=== PATIENT | male | born 1950 | race Caucasian/White ===

== ENCOUNTER 2024-05-28 12:04 | Emergency (ER) | payer MEDICARE ==
--- NOTE | 2024-05-28 12:11 | ERPHSYRPT ---
- History of Present Illness Time Seen by Provider: 05/28/24 12:10 Source: patient, family Exam Limitations: no limitations Physician History: This is an obese 74-year-old white male patient who was brought into the emergency department by a friend because of dizziness episodes. Patient's primary care provider is nurse meagan Keith. Patient states over the last several months she has had episodes of dizziness where he stands up in the room is spinning. Symptoms resolved relatively quickly. 2 days ago he had similar episode which resolved but took a little longer. Today he had another episode which took longer to resolve and he became concerned. By the time he arrived to emergency room, he has no more dizziness. The room is not spinning. Patient de nies chest pain. Patient denies shortness of breath. Patient has no diagnosed history of coronary artery disease or heart problems. Patient is not on any new medications. Within the last 10 days he completed antibiotics to treat diverticulitis. Patient does not see a hand woodworking sander. Timing/Duration: other (Multiple episodes. The most recent was approximately 1 hour prior to arrival) Severity: mild Character of Deficits: none Deficits: no difficulties Baseline/Normal Cognition: alert oriented x 3 Current Cognition: alert oriented x 3 Baseline Gait: walks w/o assistance Associated Symptoms: denies symptoms Allergies/Adverse Reactions: No Known Drug Allergies Allergy (Verified 05/28/24 12:15) Home Medications: Atorvastatin Calcium 80 mg PO DAILY 05/28/24 [History] Travel Risk - International Travel Have you traveled outside of the country in past 3 weeks: No - Emerging Infectious Disease Are you exhibiting symptoms associated with any current EIDs: No - Review of Systems Constitutional: No Symptoms Eyes: No Symptoms Ears, Nose, & Throat: No Symptoms Respiratory: No Symptoms Cardiac: No Symptoms Abdominal/Gastrointestinal: No Symptoms Genitourinary Symptoms: No Symptoms Musculoskeletal: No Symptoms Skin: No Symptoms Neurological: Dizziness Psychological: No Symptoms Endocrine: No Symptoms Hematologic/Lymphatic: No Symptoms Immunological/Allergic: No Symptoms All Other Systems: Reviewed and Negative - Past Medical History Neurological History: No Pertinent History Cardiac History: High Cholesterol Respiratory History: No Pertinent History Endocrine Medical History: No Pertinent History Musculoskeletal History: Arthritis Other Medical History: NONE NOTED - Nursing Vital Signs Nursing Vital Signs: Initial Vital Signs Temperature 97.0 F 05/28/24 12:11 Pulse Rate 85 05/28/24 12:11 Respiratory Rate 18 05/28/24 12:11 Blood Pressure 166/90 05/28/24 12:11 O2 Sat by Pulse Oximetry 99 05/28/24 12:11 Pain Scale Pain Intensity 0 - Cornelia Coma Scale Best Eye Response ([employer]): (4) open spontaneously Best Verbal Response ([employer]): (5) oriented Best Motor Response ([place]): (6) obeys commands Cornelia Total: 15 - Physical Exam General Appearance: no apparent distress, alert, anxiety, obese Eye Exam: bilateral eye: normal inspection, PERRL, EOMI Ears, Nose, Throat Exam: normal ENT inspection, TMs normal, pharynx normal, moist mucous membranes Neck Exam: normal inspection, non-tender, supple, full range of motion Respiratory: normal breath sounds, lungs clear, airway intact, No chest tenderness, No respiratory distress Cardiovascular: regular rate/rhythm, normal heart sounds, normal peripheral pulses Gastrointestinal: soft, normal bowel sounds, No tenderness Rectal Exam: not done Back Exam: normal inspection, normal range of motion, No CVA tenderness, No v ertebral tenderness Extremity Exam: normal inspection, normal range of motion, pelvis stable Mental Status: alert, oriented x 3, 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 QTc is 425) Ordered Tests: Active Orders 24 hr Category Date Time Status Manager Target STAT Care 05/28/24 12:21 Active EKG-ER Only STAT Care 05/28/24 12:20 Active IV Insertion STAT Care 05/28/24 12:20 Active HEAD WITHOUT CONTRAST [CT] Stat Exams 05/28/24 12:39 Completed CBC W DIFF Stat Lab 05/28/24 12:30 Completed CMP Stat Lab 05/28/24 12:30 Completed ETHYL ALCOHOL Stat Lab 05/28/24 12:30 Completed Lactic Acid Stat Lab 05/28/24 12:20 Completed MAGNESIUM Stat Lab 05/28/24 12:30 Completed MONO SCREEN Stat Lab 05/28/24 12:30 Completed TROPONIN Q4H Lab 05/28/24 12:30 Completed TROPONIN Q4H Lab 05/28/24 16:30 Ordered TROPONIN Q4H Lab 05/28/24 20:30 Ordered UA W/RFX UR CULTURE Stat Lab 05/28/24 12:34 Completed Urine Triage Profile Stat Lab 05/28/24 12:34 Results Holter Monitor ONCE RT 05/28/24 14:35 Ordered Medication Summary Discontinued Medications Generic Name Dose Route Start Last Admin Trade Name Marcos PRN Reason Stop Dose Admin Sodium Chloride 1,000 mls @ 999 mls/hr 05/28/24 12:20 05/28/24 13:40 Sodium Chloride 0.9% 1000 Ml IV 05/28/24 13:20 Infused .Q1H1M STA Infusion Sodium Chloride Confirm 05/28/24 12:33 Sodium Chloride 0.9% 1000 Ml Administered 05/28/24 12:34 Dose 1,000 mls @ ud .ROUTE .STK-MED ONE Lab/Rad Data: Laboratory Result Diagrams 05/28/24 12:30 05/28/24 12:30 Laboratory Results 05/28/24 05/28/24 05/28/24 Range/Units 12:34 12:34 12:30 WBC (4.23-9.07) x10^3/uL RBC (4.63-6.08) x10^6/uL Hgb (13.7-17.5) g/dL Hct (40.1-51.0) % MCV (79.0-92.2) fL MCH (25.7-32.2) pg MCHC (32.3-36.5) g/dL RDW (11.6-14.4) % Plt Count (163-337) x10^3/uL MPV (9.4-12.4) fL Gran % (34.0-67.9) % Immature Gran % (Auto) (0.001-0.429) % Nucleat RBC Rel Count (0.00-0.2) % Eos # (Auto) (0.04-0.54) x10^3/uL Immature Gran # (Auto) (0.001-0.031) x10^3u/L Absolute Lymphs (auto) (1.32-3.57) x10^3/uL Absolute Monos (auto) (0.30-0.82) x10^3/uL Absolute Nucleated RBC (0.00-0.012) x10^3u/L Lymphocytes % (21.8-53.1) % Monocytes % (5.3-12.2) % Eosinophils % (0.8-7.0) % Basophils % (0.2-1.2) % Absolute Granulocytes (1.78-5.38) x10^3/uL Basophils # (0.01-0.08) x10^3/uL Sodium (135-145) mmol/L Potassium (3.5-5.1) mmol/L Chloride (98-107) mmol/L Carbon Dioxide (22-30) mmol/L Anion Gap (5-15) MEQ/L BUN (9-20) mg/dL Creatinine (0.66-1.25) mg/dL Estimated GFR ML/MIN Glucose (74-106) mg/dL Lactic Acid (0.4-2.0) Calcium (8.4-10.2) mg/dL Magnesium (1.6-2.3) mg/dL Total Bilirubin (0.2-1.3) mg/dL AST (17-59) U/L ALT (0-50) U/L Alkaline Phosphatase (38-126) U/L Troponin I (0.000-0.033) ng/mL Serum Total Protein (6.3-8.2) g/dL Albumin (3.5-5.0) g/dL Urine Color Yellow (Yellow) Urine Appearance Clear (Clear) Urine pH 5.5 (4.6-8.0) Ur Specific Loving 1.015 (1.005-1.030) Urine Protein Trace A (Negative) Urine Glucose (UA) Negative (Negative) mg/dL Urine Ketones Trace A (Negative) Urine Blood Negative (Negative) Urine Nitrite Negative (Negative) Urine Bilirubin Negative (Negative) Urine Urobilinogen 0.2 (0.2) mg/dL Ur Leukocyte Esterase Negative (Negative) U Hyaline Cast (Auto) NONE SEEN (0-2) /LPF Urine Microscopic RBC 0-2 (0-5) /HPF Urine Microscopic WBC 0-2 (0-5) /HPF Ur Epithelial Cells None Seen (None Seen) /HPF Urine Bacteria None Seen (None Seen) /HPF Urine Culture Reflexed NO (NO) Urine Opiates Level NEGATIVE (NEGATIVE) Ur Methadone NEGATIVE (NEGATIVE) Urine Barbiturates NEGATIVE (NEGATIVE) Ur Phencyclidine (PCP) NEGATIVE (NEGATIVE) Urine Amphetamine NEGATIVE (NEGATIVE) U Benzodiazepine Level Pending Urine Cocaine NEGATIVE (NEGATIVE) Urine Marijuana (THC) NEGATIVE (NEGATIVE) Ethyl Alcohol (0-10) mg/dL Monoscreen (NEGATIVE) Influenza Type A Ag NEGATIVE (NEGATIVE) Influenza Type B Ag NEGATIVE (NEGATIVE) RSV (PCR) NEGATIVE (NEGATIVE) SARS-CoV-2 (PCR) NEGATIVE (NEGATIVE) 05/28/24 05/28/24 05/28/24 Range/Units 12:30 12:30 12:30 WBC (4.23-9.07) x10^3/uL RBC (4.63-6.08) x10^6/uL Hgb (13.7-17.5) g/dL Hct (40.1-51.0) % MCV (79.0-92.2) fL MCH (25.7-32.2) pg MCHC (32.3-36.5) g/dL RDW (11.6-14.4) % Plt Count (163-337) x10^3/uL MPV (9.4-12.4) fL Gran % (34.0-67.9) % Immature Gran % (Auto) (0.001-0.429) % Nucleat RBC Rel Count (0.00-0.2) % Eos # (Auto) (0.04-0.54) x10^3/uL Immature Gran # (Auto) (0.001-0.031) x10^3u/L Absolute Lymphs (auto) (1.32-3.57) x10^3/uL Absolute Monos (auto) (0.30-0.82) x10^3/uL Absolute Nucleated RBC (0.00-0.012) x10^3u/L Lymphocytes % (21.8-53.1) % Monocytes % (5.3-12.2) % Eosinophils % (0.8-7.0) % Basophils % (0.2-1.2) % Absolute Granulocytes (1.78-5.38) x10^3/uL Basophils # (0.01-0.08) x10^3/uL Sodium 137 (135-145) mmol/L Potassium 3.8 (3.5-5.1) mmol/L Chloride 97 L (98-107) mmol/L Carbon Dioxide 31 H (22-30) mmol/L Anion Gap 13.0 (5-15) MEQ/L BUN 12 (9-20) mg/dL Creatinine 1.07 (0.66-1.25) mg/dL Estimated GFR 72.8 ML/MIN Glucose 129 H (74-106) mg/dL Lactic Acid (0.4-2.0) Calcium 10.0 (8.4-10.2) mg/dL Magnesium 1.9 (1.6-2.3) mg/dL Total Bilirubin 0.90 (0.2-1.3) mg/dL AST 32 (17-59) U/L ALT 34 (0-50) U/L Alkaline Phosphatase 100 (38-126) U/L Troponin I < 0.012 (0.000-0.033) ng/mL Serum Total Protein 7.7 (6.3-8.2) g/dL Albumin 4.6 (3.5-5.0) g/dL Urine Color (Yellow) Urine Appearance (Clear) Urine pH (4.6-8.0) Ur Specific Loving (1.005-1.030) Urine Protein (Negative) Urine Glucose (UA) (Negative) mg/dL Urine Ketones (Negative) Urine Blood (Negative) Urine Nitrite (Negative) Urine Bilirubin (Negative) Urine Urobilinogen (0.2) mg/dL Ur Leukocyte Esterase (Negative) U Hyaline Cast (Auto) (0-2) /LPF Urine Microscopic RBC (0-5) /HPF Urine Microscopic WBC (0-5) /HPF Ur Epithelial Cells (None Seen) /HPF Urine Bacteria (None Seen) /HPF Urine Culture Reflexed (NO) Urine Opiates Level (NEGATIVE) Ur Methadone (NEGATIVE) Urine Barbiturates (NEGATIVE) Ur Phencyclidine (PCP) (NEGATIVE) Urine Amphetamine (NEGATIVE) U Benzodiazepine Level Urine Cocaine (NEGATIVE) Urine Marijuana (THC) (NEGATIVE) Ethyl Alcohol < 10 (0-10) mg/dL Monoscreen NEGATIVE (NEGATIVE) Influenza Type A Ag (NEGATIVE) Influenza Type B Ag (NEGATIVE) RSV (PCR) (NEGATIVE) SARS-CoV-2 (PCR) (NEGATIVE) 05/28/24 05/28/24 Range/Units 12:30 12:20 WBC 9.0 (4.23-9.07) x10^3/uL RBC 4.96 (4.63-6.08) x10^6/uL Hgb 15.4 (13.7-17.5) g/dL Hct 46.1 (40.1-51.0) % MCV 92.9 H (79.0-92.2) fL MCH 31.0 (25.7-32.2) pg MCHC 33.4 (32.3-36.5) g/dL RDW 12.4 (11.6-14.4) % Plt Count 167 (163-337) x10^3/uL MPV 10.3 (9.4-12.4) fL Gran % 76.8 H (34.0-67.9) % Immature Gran % (Auto) 0.2 (0.001-0.429) % Nucleat RBC Rel Count 0.0 (0.00-0.2) % Eos # (Auto) 0.09 (0.04-0.54) x10^3/uL Immature Gran # (Auto) 0.02 (0.001-0.031) x10^3u/L Absolute Lymphs (auto) 1.36 (1.32-3.57) x10^3/uL Absolute Monos (auto) 0.59 (0.30-0.82) x10^3/uL Absolute Nucleated RBC 0.00 (0.00-0.012) x10^3u/L Lymphocytes % 15.1 L (21.8-53.1) % Monocytes % 6.5 (5.3-12.2) % Eosinophils % 1.0 (0.8-7.0) % Basophils % 0.4 (0.2-1.2) % Absolute Granulocytes 6.93 H (1.78-5.38) x10^3/uL Basophils # 0.04 (0.01-0.08) x10^3/uL Sodium (135-145) mmol/L Potassium (3.5-5.1) mmol/L Chloride (98-107) mmol/L Carbon Dioxide (22-30) mmol/L Anion Gap (5-15) MEQ/L BUN (9-20) mg/dL Creatinine (0.66-1.25) mg/dL Estimated GFR ML/MIN Glucose (74-106) mg/dL Lactic Acid 1.7 (0.4-2.0) Calcium (8.4-10.2) mg/dL Magnesium (1.6-2.3) mg/dL Total Bilirubin (0.2-1.3) mg/dL AST (17-59) U/L ALT (0-50) U/L Alkaline Phosphatase (38-126) U/L Troponin I (0.000-0.033) ng/mL Serum Total Protein (6.3-8.2) g/dL Albumin (3.5-5.0) g/dL Urine Color (Yellow) Urine Appearance (Clear) Urine pH (4.6-8.0) Ur Specific Loving (1.005-1.030) Urine Protein (Negative) Urine Glucose (UA) (Negative) mg/dL Urine Ketones (Negative) Urine Blood (Negative) Urine Nitrite (Negative) Urine Bilirubin (Negative) Urine Urobilinogen (0.2) mg/dL Ur Leukocyte Esterase (Negative) U Hyaline Cast (Auto) (0-2) /LPF Urine Microscopic RBC (0-5) /HPF Urine Microscopic WBC (0-5) /HPF Ur Epithelial Cells (None Seen) /HPF Urine Bacteria (None Seen) /HPF Urine Culture Reflexed (NO) Urine Opiates Level (NEGATIVE) Ur Methadone (NEGATIVE) Urine Barbiturates (NEGATIVE) Ur Phencyclidine (PCP) (NEGATIVE) Urine Amphetamine (NEGATIVE) U Benzodiazepine Level Urine Cocaine (NEGATIVE) Urine Marijuana (THC) (NEGATIVE) Ethyl Alcohol (0-10) mg/dL Monoscreen (NEGATIVE) Influenza Type A Ag (NEGATIVE) Influenza Type B Ag (NEGATIVE) RSV (PCR) (NEGATIVE) SARS-CoV-2 (PCR) (NEGATIVE) - Progress Progress: improved, pain not gone completely Progress Note: 05/28/24 13:18 My medical decision making and the assignment of moderate complexity to this patient's medical issue today is based on review of the patient's past medical history, review the patient's medication list, review patient drug allergy list, history of present illness and physical findings on examination. The workup in this patient includes placement of a intravenous line, infusion of normal saline solution, urinalysis, twelve-lead EKG, troponin level, BNP level, CBC, CMP, magnesium level, viral swabs, CT scan of the head without contrast. Differential diagnosis includes but is not limited to ear infection, dehydration, urinary tract infection, electrolyte abnormalities, arrhythmia, acute intracranial abnormality 05/28/24 14:35 I have interpreted the patient's laboratory data results. Based on the laboratory data results, patient had mild dehydration but no other acute or e mergent medical issue. Patient did receive 1 L of crystalloid infusion. The CT scan of the head without contrast was interpreted by the radiologist and I reviewed the impression. Impression states normal CT head without contrast study Counseled pt/family regarding: lab results, diagnosis, need for follow-up, rad results Medical Desision Making - Independent Historian Additional History obtained from: Relative/friend - Diagnostic Testing Diagnostic test were ordered, analyzed, and reviewed by me: Yes Radiological Interpretation: Reviewed by me, Teleradiologist Report - Risk of complications The pt has a mod risk of morbidity or mortality based on: Need for prescription drug management - Departure Departure Disposition: Home Clinical Impression: Dizziness Condition: Stable Critical Care Time: No Referrals: KENN KEITH NP [Primary Care Provider] - Follow up/PCP as directed Additional Instructions: If you begin having dizzy spells, take your dizziness medication as prescribed. Continue your other medication as prescribed. Call your primary care provider today, to make arrangements for follow-up appointment for further evaluation management and referral to hand woodworking sander if indicated. Prescriptions: Meclizine HCl 25 mg [Antivert 25 mg] 25 mg PO Q8H PRN #10 tablet PRN Reason: Dizziness
[2024-05-28 12:15] VITALS: TEMP 97
[2024-05-28] MEDS ORDERED: Sodium Chloride 0.9% 1000 ML 1,000 ML ONE (12:33)
[2024-05-28] MEDS: Sodium Chloride 0.9% 1000 ML 1,000 ML IV STA (12:34)
[2024-05-28 12:36] LABS: Absolute Neutrophil Ct (ANC) 6.93 x10^3/uL (1.78-5.38); BASOPHIL % 0.4 % (0.2-1.2); Basophil (Absolute #) 0.04 x10^3/uL (0.01-0.08); Eosinophil (Absolute #) 0.09 x10^3/uL (0.04-0.54); Hematocrit 46.1 % (40.1-51.0); Hemoglobin 15.4 g/dL (13.7-17.5); IMMATURE GRAN # 0.02 x10^3u/L (0.001-0.031); IMMATURE GRAN % 0.2 % (0.001-0.429); Lymphocyte (Absolute #) 1.36 x10^3/uL (1.32-3.57); Lymphocytes % 15.1 % (21.8-53.1); Mean Cell Volume 92.9 fL (79.0-92.2); Mean Corpuscular Hgb Concent. 33.4 g/dL (32.3-36.5); Mean Platelet Volume 10.3 fL (9.4-12.4); Monocyte (Absolute #) 0.59 x10^3/uL (0.30-0.82); Monocytes % 6.5 % (5.3-12.2); Neutrophil % 76.8 % (34.0-67.9); Platelet Count 167 x10^3/uL (163-337); Red Blood Count 4.96 x10^6/uL (4.63-6.08); Red Cell Distribution Width 12.4 % (11.6-14.4)
[2024-05-28 12:58] LABS: ADD URINE CULTURE? NO (NO); Appearance Clear (Clear); Bacteria None Seen /HPF (None Seen); Bilirubin Negative (Negative); Blood Negative (Negative); Epithelial Cells None Seen /HPF (None Seen); Glucose, Urine Negative (Negative); Hyaline Casts NONE SEEN /LPF (0-2); Ketones Trace (Negative); Leukocyte Esterase Negative (Negative); Nitrite Negative (Negative); Ph 5.5 (4.6-8.0); Protein,Urine Dip Trace (Negative); RBC 0-2 /HPF (0-5); Specific Gravity 1.015 (1.005-1.030); Urobilinogen 0.2 mg/dL (0.2); WBC 0-2 /HPF (0-5)
[2024-05-28 12:58] LABS: ALBUMIN 4.6 g/dL (3.5-5.0); ALKALINE PHOSPHATASE 100 U/L (38-126); BLOOD UREA NITROGEN 12 mg/dL (9-20); CHLORIDE 97 mmol/L (98-107); Carbon Dioxide 31 mmol/L (22-30); Creatinine 1 1.07 mg/dL (0.66-1.25); EST GLOMERULAR FILTRATION RATE 72.8 ML/MIN; ETHYL ALCOHOL < 10 mg/dL (0-10); Glucose 129 mg/dL (74-106); MAGNESIUM 1.9 mg/dL (1.6-2.3); Potassium 3.8 mmol/L (3.5-5.1); SGOT/AST 32 U/L (17-59); SGPT/ALT 34 U/L (0-50); SODIUM 137 mmol/L (135-145); Total Protein 7.7 g/dL (6.3-8.2)
[2024-05-28 13:05] LABS: Amphetamine,Urine NEGATIVE (NEGATIVE); Barbiturate,Urine NEGATIVE (NEGATIVE); Cocaine,Urine NEGATIVE (NEGATIVE); Methadone,Urine NEGATIVE (NEGATIVE); Opiate,Urine NEGATIVE (NEGATIVE); PCP,Urine NEGATIVE (NEGATIVE); THC,Urine NEGATIVE (NEGATIVE)
--- NOTE | 2024-05-28 13:17 | XRAY ---
Indication: Dizziness. Multiple contiguous axial images obtained through the head without contrast. Comparison: None Normal appearing brain parenchyma, ventricles, and bony calvarium for patient's age. Visualized paranasal sinuses and mastoid air cells are clear. Impression: Normal CT head without contrast exam.
[2024-05-28 13:25] LABS: INFLUENZA A NEGATIVE (NEGATIVE); INFLUENZA B NEGATIVE (NEGATIVE); RESPIRATORY SYNCTIAL VIRUS NEGATIVE (NEGATIVE); SARS-CoV-2 Xpert Express NEGATIVE (NEGATIVE)
[2024-05-28 14:03] VITALS: PULSE 83
[2024-05-28 14:55] VITALS: BP 163/94; RESP 19; O2SAT 98
== END 2024-05-28 15:03 | disposition home or self-care (01) ==
LOC: ED 12:04
DX: R42 Dizziness and giddiness (principal); E78.5 Hyperlipidemia, unspecified; Z79.899 Other long term (current) drug therapy
CPT/HCPCS: 0241U; 36000; 36415; 70450; 80053; 80307; 81001; 82077; 83605; 83735; 84484; 85025; 86308; 93005; 93041; 96360; 99284

== ENCOUNTER 2024-05-28 22:32 | Observation (INO) | payer MEDICARE ==
[2024-05-28 22:56] LABS: Absolute Neutrophil Ct (ANC) 8.29 x10^3/uL (1.78-5.38); BASOPHIL % 0.4 % (0.2-1.2); Basophil (Absolute #) 0.05 x10^3/uL (0.01-0.08); Eosinophil % 0.9 % (0.8-7.0); Eosinophil (Absolute #) 0.12 x10^3/uL (0.04-0.54); Hematocrit 47.5 % (40.1-51.0); Hemoglobin 15.8 g/dL (13.7-17.5); IMMATURE GRAN # 0.04 x10^3u/L (0.001-0.031); IMMATURE GRAN % 0.3 % (0.001-0.429); Lymphocytes % 26.7 % (21.8-53.1); Mean Cell Volume 92.8 fL (79.0-92.2); Mean Corpuscular Hemoglobin 30.9 pg (25.7-32.2); Mean Corpuscular Hgb Concent. 33.3 g/dL (32.3-36.5); Mean Platelet Volume 10.8 fL (9.4-12.4); Monocyte (Absolute #) 1.11 x10^3/uL (0.30-0.82); Monocytes % 8.5 % (5.3-12.2); Neutrophil % 63.2 % (34.0-67.9); Platelet Count 212 x10^3/uL (163-337); Red Blood Count 5.12 x10^6/uL (4.63-6.08); Red Cell Distribution Width 12.5 % (11.6-14.4); White Blood Count 13.1 x10^3/uL (4.23-9.07)
--- NOTE | 2024-05-28 22:56 | ERPHSYRPT ---
- History of Present Illness Time Seen by Provider: 05/28/24 22:45 Source: patient Exam Limitations: clinical condition Patient Subjective Stated Complaint: pt states he became very dizzy, nauseous, and diaphoretic while at home watching tv. was here in er earlier today for dizziness. Triage Nursing Assessment: pt alert and oriented, answers questions approp. pt arrive per ambulance and transfers to [facility] with assist of 4. respirations nonlabored. skin diaphoretic on arrival. heart rate 86 on monitor, sinus rhythm. pupils equal and reactive. Timing/Duration: today Severity: mild Modifying Factors: Improves With: movement Associated Symptoms: denies symptoms Allergies/Adverse Reactions: No Known Drug Allergies Allergy (Verified 05/28/24 22:36) Home Medications: Allopurinol 100 mg [Zyloprim 100 mg] 100 mg PO BID 05/28/24 [History] Atorvastatin Calcium 80 mg PO DAILY 05/28/24 [History] Tamsulosin HCl 0.4 mg [Flomax 0.4 MG] 0.4 mg PO DAILY 05/28/24 [History] Hx Tetanus, Diphtheria Vaccination/Date Given: No Hx Influenza Vaccination/Date Given: Yes Hx Pneumococcal Vaccination/Date Given: No Immunizations Up to Date: No Travel Risk - International Travel Have you traveled outside of the country in past 3 weeks: No - Emerging Infectious Disease Are you exhibiting symptoms associated with any current EIDs: No - Review of Systems Eyes: No Symptoms Ears, Nose, & Throat: No Symptoms Respiratory: No Symptoms Cardiac: No Symptoms Abdominal/Gastrointestinal: No Symptoms Genitourinary Symptoms: No Symptoms Musculoskeletal: No Symptoms Skin: No Symptoms Neurological: No Symptoms Psychological: No Symptoms Endocrine: No Symptoms Hematologic/Lymphatic: No Symptoms Immunological/Allergic: No Symptoms - Past Medical History Pertinent Past Medical History: Yes Neurological History: No Pertinent History ENT History: No Pertinent History Cardiac History: No Pertinent History, High Cholesterol Respiratory History: No Pertinent History Endocrine Medical History: No Pertinent History Musculoskeletal History: Arthritis GI Medical History: Diverticulitis, Diverticulosis Male Reproductive Disorders: Prostate Cancer Other Medical History: NONE NOTED - Past Surgical History Past Surgical History: Yes Other Surgical History: radioactive seeds in prosrtate in 04/2024 - Social History Smoking Status: Never smoker Exposure to second hand smoke: Yes Drug Use: none - Social Determinants of Health Will the patient participate in the screening: Declined to provide - Nursing Vital Signs Nursing Vital Signs: Initial Vital Signs Pulse Rate 89 05/28/24 22:33 Respiratory Rate 27 H 05/28/24 22:33 Blood Pressure 169/86 05/28/24 22:33 O2 Sat by Pulse Oximetry 93 L 05/28/24 22:33 Pain Scale Pain Intensity 0 - Physical Exam General Appearance: no apparent distress Eye Exam: PERRL/EOMI Ears, Nose, Throat Exam: normal ENT inspection Neck Exam: normal inspection Respiratory Exam: normal breath sounds Cardiovascular Exam: regular rate/rhythm Gastrointestinal/Abdomen Exam: soft, tenderness (Patient has mild tenderness diffusely), distention SpO2: 93 Ordered Tests: Active Orders 24 hr Category Date Time Status ABDOMEN AND PELVIS W CONTRAST [CT] Stat Exams 05/28/24 22:52 Completed CHEST WITH CONTRAST [CT] Stat Exams 05/28/24 22:56 Completed AMYLASE Stat Lab 05/28/24 22:50 Completed CBC W DIFF Stat Lab 05/28/24 22:50 Completed CMP Stat Lab 05/28/24 22:50 Completed LIPASE Stat Lab 05/28/24 22:50 Completed TROPONIN Q4H Lab 05/28/24 22:50 Completed TROPONIN Q4H Lab 05/29/24 03:00 Ordered TROPONIN Q4H Lab 05/29/24 07:00 Ordered UA W/RFX UR CULTURE Stat Lab 05/29/24 00:44 Completed Transfer Order Routine Transfer 05/29/24 Ordered Medication Summary Discontinued Medications Generic Name Dose Route Start Last Admin Trade Name Freq PRN Reason Stop Dose Admin Droperidol 1.25 mg 05/28/24 22:51 05/28/24 23:05 Droperidol 5 Mg/2 Ml Vial IV 05/28/24 22:52 1.25 mg STAT ONE Administration Droperidol Confirm 05/28/24 23:02 Droperidol 5 Mg/2 Ml Vial Administered 05/28/24 23:03 Dose 5 mg .ROUTE .STK-MED ONE Sodium Chloride 1,000 mls @ 999 mls/hr 05/28/24 22:51 05/29/24 00:31 Sodium Chloride 0.9% 1000 Ml IV 05/28/24 23:51 Infused .Q1H1M STA Infusion Sodium Chloride Confirm 05/28/24 23:03 Sodium Chloride 0.9% 1000 Ml Administered 05/28/24 23:04 Dose 1,000 mls @ ud .ROUTE .STK-MED ONE Lab/Rad Data: Laboratory Result Diagrams 05/28/24 22:50 05/28/24 22:50 Laboratory Results 05/29/24 05/28/24 05/28/24 Range/Units 00:44 22:50 22:50 WBC (4.23-9.07) x10^3/uL RBC (4.63-6.08) x10^6/uL Hgb (13.7-17.5) g/dL Hct (40.1-51.0) % MCV (79.0-92.2) fL MCH (25.7-32.2) pg MCHC (32.3-36.5) g/dL RDW (11.6-14.4) % Plt Count (163-337) x10^3/uL MPV (9.4-12.4) fL Gran % (34.0-67.9) % Immature Gran % (Auto) (0.001-0.429) % Nucleat RBC Rel Count (0.00-0.2) % Eos # (Auto) (0.04-0.54) x10^3/uL Immature Gran # (Auto) (0.001-0.031) x10^3u/L Absolute Lymphs (auto) (1.32-3.57) x10^3/uL Absolute Monos (auto) (0.30-0.82) x10^3/uL Absolute Nucleated RBC (0.00-0.012) x10^3u/L Lymphocytes % (21.8-53.1) % Monocytes % (5.3-12.2) % Eosinophils % (0.8-7.0) % Basophils % (0.2-1.2) % Absolute Granulocytes (1.78-5.38) x10^3/uL Basophils # (0.01-0.08) x10^3/uL Sodium 138 (135-145) mmol/L Potassium 3.5 (3.5-5.1) mmol/L Chloride 100 (98-107) mmol/L Carbon Dioxide 24 (22-30) mmol/L Anion Gap 17.0 H (5-15) MEQ/L BUN 14 (9-20) mg/dL Creatinine 1.10 (0.66-1.25) mg/dL Estimated GFR 70.4 ML/MIN Glucose 117 H (74-106) mg/dL Calcium 9.9 (8.4-10.2) mg/dL Total Bilirubin 0.80 (0.2-1.3) mg/dL AST 33 (17-59) U/L ALT 37 (0-50) U/L Alkaline Phosphatase 123 (38-126) U/L Troponin I < 0.012 (0.000-0.033) ng/mL Serum Total Protein 7.8 (6.3-8.2) g/dL Albumin 4.7 (3.5-5.0) g/dL Amylase 81 (30-110) U/L Lipase 167 (23-300) U/L Urine Color Yellow (Yellow) Urine Appearance Clear (Clear) Urine pH 6.0 (4.6-8.0) Ur Specific Leigh >=1.030 A (1.005-1.030) Urine Protein Negative (Negative) Urine Glucose (UA) Negative (Negative) mg/dL Urine Ketones Negative (Negative) Urine Blood Negative (Negative) Urine Nitrite Negative (Negative) Urine Bilirubin Negative (Negative) Urine Urobilinogen 0.2 (0.2) mg/dL Ur Leukocyte Esterase Negative (Negative) U Hyaline Cast (Auto) NONE SEEN (0-2) /LPF Urine Microscopic RBC 0-2 (0-5) /HPF Urine Microscopic WBC 0-2 (0-5) /HPF Ur Epithelial Cells None Seen (None Seen) /HPF Urine Bacteria None Seen (None Seen) /HPF Urine Culture Reflexed NO (NO) 05/28/24 Range/Units 22:50 WBC 13.1 H (4.23-9.07) x10^3/uL RBC 5.12 (4.63-6.08) x10^6/uL Hgb 15.8 (13.7-17.5) g/dL Hct 47.5 (40.1-51.0) % MCV 92.8 H (79.0-92.2) fL MCH 30.9 (25.7-32.2) pg MCHC 33.3 (32.3-36.5) g/dL RDW 12.5 (11.6-14.4) % Plt Count 212 (163-337) x10^3/uL MPV 10.8 (9.4-12.4) fL Gran % 63.2 (34.0-67.9) % Immature Gran % (Auto) 0.3 (0.001-0.429) % Nucleat RBC Rel Count 0.0 (0.00-0.2) % Eos # (Auto) 0.12 (0.04-0.54) x10^3/uL Immature Gran # (Auto) 0.04 H (0.001-0.031) x10^3u/L Absolute Lymphs (auto) 3.50 (1.32-3.57) x10^3/uL Absolute Monos (auto) 1.11 H (0.30-0.82) x10^3/uL Absolute Nucleated RBC 0.00 (0.00-0.012) x10^3u/L Lymphocytes % 26.7 (21.8-53.1) % Monocytes % 8.5 (5.3-12.2) % Eosinophils % 0.9 (0.8-7.0) % Basophils % 0.4 (0.2-1.2) % Absolute Granulocytes 8.29 H (1.78-5.38) x10^3/uL Basophils # 0.05 (0.01-0.08) x10^3/uL Sodium (135-145) mmol/L Potassium (3.5-5.1) mmol/L Chloride (98-107) mmol/L Carbon Dioxide (22-30) mmol/L Anion Gap (5-15) MEQ/L BUN (9-20) mg/dL Creatinine (0.66-1.25) mg/dL Estimated GFR ML/MIN Glucose (74-106) mg/dL Calcium (8.4-10.2) mg/dL Total Bilirubin (0.2-1.3) mg/dL AST (17-59) U/L ALT (0-50) U/L Alkaline Phosphatase (38-126) U/L Troponin I (0.000-0.033) ng/mL Serum Total Protein (6.3-8.2) g/dL Albumin (3.5-5.0) g/dL Amylase (30-110) U/L Lipase (23-300) U/L Urine Color (Yellow) Urine Appearance (Clear) Urine pH (4.6-8.0) Ur Specific Leigh (1.005-1.030) Urine Protein (Negative) Urine Glucose (UA) (Negative) mg/dL Urine Ketones (Negative) Urine Blood (Negative) Urine Nitrite (Negative) Urine Bilirubin (Negative) Urine Urobilinogen (0.2) mg/dL Ur Leukocyte Esterase (Negative) U Hyaline Cast (Auto) (0-2) /LPF Urine Microscopic RBC (0-5) /HPF Urine Microscopic WBC (0-5) /HPF Ur Epithelial Cells (None Seen) /HPF Urine Bacteria (None Seen) /HPF Urine Culture Reflexed (NO) - Progress Progress Note: Patient seen and evaluated for nausea and vomiting with some dizziness and diaphoresis labs were ordered CT chest abdomen pelvis will be ordered. Be given IV fluids and antiemetics, informed of the need for admission and is agreeable 05/28/24 22:55 05/29/24 02:44 CT of the abdomen reveals 1.Sigmoid colon shows segmental wall thickening with mild surrounding fat stranding and fascial thickening - suggestive of sigmoid colitis ; recommended clinical correlation and follow up 2. Cholelithiasis; no features of acute cholecystitis 3. Small hepatic and left renal cyst CT of the chest revealed 05/29/24 02:45 IMPRESSION: 1. No acute lung abnormality 2.Dependent subsegmental lung atelectasis in bilateral (right > left) lower lobes 3. Few benign lung nodules - suggestive of pneumonitis sequelae 4. Few small calcified mediatinal lymph nodes - suggests chronic sequelae Patient was informed of the need for mission and is agreeable he will be given IV fluids and IV antiemetics and he has no further questions Medical Desision Making - Discussion of managment Care discussed with:: hospitalist Agreed on:: decision to admit, place in obs Will see patient: in hospital - Departure Departure Disposition: Observation Clinical Impression: Dizziness, Acute abdominal pain, Colitis Condition: Stable Critical Care Time: No Referrals: KENN SINGLETARY NP [Primary Care Provider] - Follow up/PCP as directed
[2024-05-28] MEDS ORDERED: Sodium Chloride 0.9% 1000 ML 1,000 ML ONE (23:03)
[2024-05-28] MEDS: Sodium Chloride 0.9% 1000 ML 1,000 ML IV STA (23:05)
[2024-05-28 23:09] LABS: ALBUMIN 4.7 g/dL (3.5-5.0); BILIRUBIN,TOTAL 0.8 mg/dL (0.2-1.3); Calcium 9.9 mg/dL (8.4-10.2); Creatinine 1 1.1 mg/dL (0.66-1.25); EST GLOMERULAR FILTRATION RATE 70.4 ML/MIN; Potassium 3.5 mmol/L (3.5-5.1); Total Protein 7.8 g/dL (6.3-8.2)
--- NOTE | 2024-05-29 00:45 | XRAY ---
CLINICAL HISTORY: abdominal pain and nausea and vomit COMPARISON: none TECHNIQUE: Multiple contiguous axial images were obtained from the level of diaphragm to the pubis symphysis. This study was acquired after the IV administration of iodinated contrast material, given the patients indications for the examination. If IV contrast material had not been administered, the likelihood of detecting abnormalities relevant to the patients condition would have been substantially decreased. Coronal and sagittal reformatted images were generated and reviewed to improve anatomic localization and optimize lesion detection. CT scan was performed according to ALARA (as low as reasonable achievable). FINDINGS: Bilateral lower lobes show dependent subsegmental atelectasis (right > left). The visualized lung bases are otherwise clear. ABDOMEN/PELVIS: The liver is normal in size and attenuation. Small cyst measuring 2 mm x 2mm noted in segment 6. No other focal liver lesions are seen. There is no intra or extrahepatic biliary ductal dilatation. Hepatic vasculature is patent. The gallbladder is normally distended. Hyperdense calculi measuring collectively ~ 8 mm x 4 mm is noted in the neck of gall bladder. The spleen, pancreas, and adrenal glands are unremarkable. The kidneys are normal in size and attenuation. Small left renal hypodense cyst measuring 12 mm x 18 mm is noted in the upper interpole. There is no hydronephrosis or perinephric fat stranding. No renal calculi or renal masses are identified. The ureters are normal in caliber and no ureteral calculi are seen. The bladder is normal in contour. There is mild segmental wall thickening in sigmoid colon with mild surrounding fat stranding and fascial thickening. One suspicious colon diverticulum noted. No air foci or fluid collections. No evidence of diffuse bowel wall thickening or evidence of bowel obstruction is seen. The appendix is visualized in the right lower quadrant and appears within normal limits. No adenopathy or fluid collections are seen. The aorta is normal in caliber. Prostate gland shows multiple seed implants within. No aggressive appearing osseous lesions are identified. Degenerative changes noted in the thoracolumbar vertebra. IMPRESSION: 1.Sigmoid colon shows segmental wall thickening with mild surrounding fat stranding and fascial thickening - suggestive of sigmoid colitis ; recommended clinical correlation and follow up 2. Cholelithiasis; no features of acute cholecystitis 3. Small hepatic and left renal cyst Electronically Signed by: Llait Rivers MD. (05/29/2024 00:41:21 EDT)
[2024-05-29 00:58] LABS: Appearance Clear (Clear); Bacteria None Seen /HPF (None Seen); Bilirubin Negative (Negative); Blood Negative (Negative); Epithelial Cells None Seen /HPF (None Seen); Glucose, Urine Negative (Negative); Hyaline Casts NONE SEEN /LPF (0-2); Ketones Negative (Negative); Leukocyte Esterase Negative (Negative); Nitrite Negative (Negative); Protein,Urine Dip Negative (Negative); RBC 0-2 /HPF (0-5); Specific Gravity >=1.030 (1.005-1.030); Urobilinogen 0.2 mg/dL (0.2); WBC 0-2 /HPF (0-5)
[2024-05-29 00:59] LABS: ADD URINE CULTURE? NO (NO)
--- NOTE | 2024-05-29 01:05 | XRAY ---
CLINICAL HISTORY: cough COMPARISON: none TECHNIQUE: Contiguous axial images were obtained from the neck base through the upper abdomen following intravenous administration of contrast material. If IV contrast material had not been administered, the likelihood of detecting abnormalities relevant to the patient's condition would have been substantially decreased. In addition, sagittal and coronal reconstructions were performed. CT scan was performed according to ALARA (as low as reasonable achievable). FINDINGS: Small calcified nodule measuring 2 mm x 2 mm is noted in anterior segment of right upper lobe. Small subpleural ground glass nodule measuring 3.5 mm noted in apicoposterior segmnet of left upper lobe. Dependent subsegmental lung atelectasis noted in bilateral (right > left) lower lobes. Pleuroparenchymal fibrotic band noted in lingula. The lungs are otherwise clear, with no focal areas of consolidation. The central airways are patent. There are no pleural effusions. No pneumothorax is seen. Few small mediastinal lymph nodes noted. Few are partly calcified. No significant axillary, hilar, or mediastinal adenopathy is identified. The visualized thyroid is unremarkable. The heart, aorta, and pulmonary arteries are of normal size and configuration. No pericardial effusion is identified. Imaged portions of the upper abdomen show cholelithiasis. No aggressive appearing osseous lesions are identified. Thoracic vertebra shows degenerative changes. IMPRESSION: 1. No acute lung abnormality 2.Dependent subsegmental lung atelectasis in bilateral (right > left) lower lobes 3. Few benign lung nodules - suggestive of pneumonitis sequelae 4. Few small calcified mediatinal lymph nodes - suggests chronic sequelae Electronically Signed by: Lalit Rivers MD. (05/29/2024 01:00:57 EDT)
[2024-05-29] MEDS ORDERED: FLAGYL 500 MG IVPB 500 MG/100 ML BAG IV ONE (02:51)
[2024-05-29] MEDS: FLAGYL 500 MG IVPB 500 MG/100 ML BAG IV STA (02:53)
[2024-05-29] MEDS ORDERED: Zofran 4 MG/2 ML VIAL IV PRN (03:03)
[2024-05-29] MEDS ORDERED: MORPHINE SULFATE 4 MG INJ IV PRN (03:03)
[2024-05-29] MEDS: Levofloxacin 500MG/100ML D5W 500 MG/100 ML BAG IV STA (04:00)
[2024-05-29] MEDS: Lactated Ringers 1,000 ML IV SCH (04:00)
[2024-05-29 04:39] LABS: Hematocrit 40.6 % (40.1-51.0); Hemoglobin 13.6 g/dL (13.7-17.5); Mean Cell Volume 92.3 fL (79.0-92.2); Mean Corpuscular Hemoglobin 30.9 pg (25.7-32.2); Mean Corpuscular Hgb Concent. 33.5 g/dL (32.3-36.5); Mean Platelet Volume 10.5 fL (9.4-12.4); Platelet Count 157 x10^3/uL (163-337); Red Cell Distribution Width 12.6 % (11.6-14.4); White Blood Count 10.4 x10^3/uL (4.23-9.07)
[2024-05-29 05:00] LABS: ANION GAP 12.8 MEQ/L (5-15); Creatinine 1 0.97 mg/dL (0.66-1.25); EST GLOMERULAR FILTRATION RATE 81.9 ML/MIN
[2024-05-29] MEDS ORDERED: ANTIVERT 25 MG PO PRN (05:38)
--- NOTE | 2024-05-29 05:46 | PCM.HP ---
History of Present Illness - Chief Complaint Chief Complaint: nausea/vomiting Date: 05/29/24 History of Present Illness: 74 y/o M with h/o prostatce CA and dyslipidemia, who presents with severe nausea and vomiting. Patient complains of sudden episode of vertigo (with "the room spinning"), with severe nausea and vomiting, this morning. Initially came to the ED this morning, and was discharged home with prescription for meclizine. He had recurrent episode this afternoon, associated with severe diaphoresis, so returned to the ED today. He also notes a similar episode, but less severe, about one week ago. Episodes can occur at any time without prompting; he has not noted any particular movements or sides that worsen the veritgo. He denies ear fullness, pain, or hearing changes. He denies abdominal pain, diarrhea, fevers, chest pain or dyspnea. He notes that a little over a week ago he was treated for an episodes of diverticulitis (with diarrhea and abdominal pain) that has completely resolved. - Review of Systems Constitutional: No Fever, No Weakness Eyes: Vision Changes, Double Vision Ears, Nose, & Throat: Nose Congestion, No Ear Discharge, No Hearing Changes, No Tinnitus, No Sinus Drainage, No Throat Pain, No Throat Swelling Respiratory: No Cough, No Short Of Breath Cardiac: No Chest Pain, No Palpitations Abdominal/Gastrointestinal: Nausea, Vomiting, No Abdominal Pain, No Diarrhea, No Constipation Genitourinary Symptoms: No Dysuria, No Frequency Medications & Allergies Home Medications: Home Medication List Allopurinol 100 mg [Zyloprim 100 mg] 100 mg PO BID 05/28/24 [History Confirmed 05/29/24] Atorvastatin Calcium 80 mg PO HS 05/28/24 [History Confirmed 05/29/24] Meclizine HCl 25 mg [Antivert 25 mg] 25 mg PO Q8H PRN #10 tablet 05/28/24 [Rx Confirmed 05/28/24] Tamsulosin HCl 0.4 mg [Flomax 0.4 MG] 0.4 mg PO HS 05/28/24 [History Confirmed 05/29/24] Allergies/Adverse Reactions: Allergies Allergy/AdvReac Type Severity Reaction Status Date / Time No Known Drug Allergies Allergy Verified 05/29/24 03:22 - Past Medical History Past Medical History: Yes Neurological History: No Pertinent History ENT History: No Pertinent History Cardiac History: High Cholesterol Respiratory History: No Pertinent History Endocrine Medical History: No Pertinent History Musculoskelatal History: No Pertinent History GI Medical History: Diverticulitis, Diverticulosis History: No Pertinent History Male Reproductive Disorders: Prostate Cancer Comment: NONE NOTED - Past Surgical History Past Surgical History: Yes Neuro Surgical History: No Pertinent History Cardiac History: No Pertinent History Respiratory Surgery: No Pertinent History GI Surgical History: Colon Resection, Hernia Repair Genitourinary Surgical Hx: No Pertinent History Musculskeletal Surgical Hx: No Pertinent History Male Surgical History: No Pertinent History Other Surgical History: radioactive seeds in prostate in 04/2024 Significant Family History: no pertinent family hx - Social History Smoking Status: Never smoker Exposure to second hand smoke: No Alcohol: Daily Drug Use: none - Social Determinants of Health Will the patient participate in the screening: Yes Do you worry about a steady place to live?: No Do you have any problems with any of the following?: No known problems In the past 12 months,have you had to go without utilities?: No Have you or anyone in your house had to go without enough: No Transportation Issues: No Has anyone in your support network made you feel unsafe?: No Does the patient want assistance with any of the above?: No - Physical Exam Vital Signs: Vital Signs - 24 hr Temp Pulse Resp BP BP Pulse Ox 05/29/24 03:22 97.8 F 99 H 22 175/76 91 L 05/29/24 03:00 99 H 23 174/87 95 05/29/24 02:54 101 H 25 H 175/97 93 L 05/29/24 02:46 93 L 05/29/24 02:00 104 H 18 164/85 94 L 05/29/24 01:00 122 H 27 H 148/81 05/28/24 23:00 100 H 31 H 148/81 05/28/24 22:37 98.2 F 86 16 169/86 93 L 05/28/24 22:33 89 27 H 169/86 93 L General Appearance: no apparent distress Neurologic Exam: alert, oriented x 3, burn nurse II-XII nml as tested, No motor deficits, No sensory deficit Eye Exam: PERRL/EOMI, eyes nml inspection Respiratory Exam: normal breath sounds, lungs clear, No respiratory distress Cardiovascular Exam: regular rate/rhythm, normal heart sounds, No murmur Gastrointestinal/Abdomen Exam: No tenderness, No distention Results - Labs Lab/Micro Results: Lab Results-Last 24 Hours 05/28/24 05/28/24 05/28/24 Range/Units 22:50 22:50 22:50 WBC 13.1 H (4.23-9.07) x10^3/uL RBC 5.12 (4.63-6.08) x10^6/uL Hgb 15.8 (13.7-17.5) g/dL Hct 47.5 (40.1-51.0) % MCV 92.8 H (79.0-92.2) fL MCH 30.9 (25.7-32.2) pg MCHC 33.3 (32.3-36.5) g/dL RDW 12.5 (11.6-14.4) % Plt Count 212 (163-337) x10^3/uL MPV 10.8 (9.4-12.4) fL Gran % 63.2 (34.0-67.9) % Immature Gran % (Auto) 0.3 (0.001-0.429) % Nucleat RBC Rel Count 0.0 (0.00-0.2) % Eos # (Auto) 0.12 (0.04-0.54) x10^3/uL Immature Gran # (Auto) 0.04 H (0.001-0.031) x10^3u/L Absolute Lymphs (auto) 3.50 (1.32-3.57) x10^3/uL Absolute Monos (auto) 1.11 H (0.30-0.82) x10^3/uL Absolute Nucleated RBC 0.00 (0.00-0.012) x10^3u/L Lymphocytes % 26.7 (21.8-53.1) % Monocytes % 8.5 (5.3-12.2) % Eosinophils % 0.9 (0.8-7.0) % Basophils % 0.4 (0.2-1.2) % Absolute Granulocytes 8.29 H (1.78-5.38) x10^3/uL Basophils # 0.05 (0.01-0.08) x10^3/uL Sodium 138 (135-145) mmol/L Potassium 3.5 (3.5-5.1) mmol/L Chloride 100 (98-107) mmol/L Carbon Dioxide 24 (22-30) mmol/L Anion Gap 17.0 H (5-15) MEQ/L BUN 14 (9-20) mg/dL Creatinine 1.10 (0.66-1.25) mg/dL Estimated GFR 70.4 ML/MIN Glucose 117 H (74-106) mg/dL Calcium 9.9 (8.4-10.2) mg/dL Total Bilirubin 0.80 (0.2-1.3) mg/dL AST 33 (17-59) U/L ALT 37 (0-50) U/L Alkaline Phosphatase 123 (38-126) U/L Troponin I < 0.012 (0.000-0.033) ng/mL Serum Total Protein 7.8 (6.3-8.2) g/dL Albumin 4.7 (3.5-5.0) g/dL Amylase 81 (30-110) U/L Lipase 167 (23-300) U/L Urine Color (Yellow) Urine Appearance (Clear) Urine pH (4.6-8.0) Ur Specific [place] (1.005-1.030) Urine Protein (Negative) Urine Glucose (UA) (Negative) mg/dL Urine Ketones (Negative) Urine Blood (Negative) Urine Nitrite (Negative) Urine Bilirubin (Negative) Urine Urobilinogen (0.2) mg/dL Ur Leukocyte Esterase (Negative) U Hyaline Cast (Auto) (0-2) /LPF Urine Microscopic RBC (0-5) /HPF Urine Microscopic WBC (0-5) /HPF Ur Epithelial Cells (None Seen) /HPF Urine Bacteria (None Seen) /HPF Urine Culture Reflexed (NO) 05/29/24 05/29/24 05/29/24 Range/Units 00:44 03:05 04:40 WBC (4.23-9.07) x10^3/uL RBC (4.63-6.08) x10^6/uL Hgb (13.7-17.5) g/dL Hct (40.1-51.0) % MCV (79.0-92.2) fL MCH (25.7-32.2) pg MCHC (32.3-36.5) g/dL RDW (11.6-14.4) % Plt Count (163-337) x10^3/uL MPV (9.4-12.4) fL Gran % (34.0-67.9) % Immature Gran % (Auto) (0.001-0.429) % Nucleat RBC Rel Count (0.00-0.2) % Eos # (Auto) (0.04-0.54) x10^3/uL Immature Gran # (Auto) (0.001-0.031) x10^3u/L Absolute Lymphs (auto) (1.32-3.57) x10^3/uL Absolute Monos (auto) (0.30-0.82) x10^3/uL Absolute Nucleated RBC (0.00-0.012) x10^3u/L Lymphocytes % (21.8-53.1) % Monocytes % (5.3-12.2) % Eosinophils % (0.8-7.0) % Basophils % (0.2-1.2) % Absolute Granulocytes (1.78-5.38) x10^3/uL Basophils # (0.01-0.08) x10^3/uL Sodium 134 L (135-145) mmol/L Potassium 4.0 (3.5-5.1) mmol/L Chloride 100 (98-107) mmol/L Carbon Dioxide 26 (22-30) mmol/L Anion Gap 12.8 (5-15) MEQ/L BUN 12 (9-20) mg/dL Creatinine 0.97 (0.66-1.25) mg/dL Estimated GFR 81.9 ML/MIN Glucose 117 H (74-106) mg/dL Calcium 9.0 (8.4-10.2) mg/dL Total Bilirubin (0.2-1.3) mg/dL AST (17-59) U/L ALT (0-50) U/L Alkaline Phosphatase (38-126) U/L Troponin I < 0.012 (0.000-0.033) ng/mL Serum Total Protein (6.3-8.2) g/dL Albumin (3.5-5.0) g/dL Amylase (30-110) U/L Lipase (23-300) U/L Urine Color Yellow (Yellow) Urine Appearance Clear (Clear) Urine pH 6.0 (4.6-8.0) Ur Specific [place] >=1.030 A (1.005-1.030) Urine Protein Negative (Negative) Urine Glucose (UA) Negative (Negative) mg/dL Urine Ketones Negative (Negative) Urine Blood Negative (Negative) Urine Nitrite Negative (Negative) Urine Bilirubin Negative (Negative) Urine Urobilinogen 0.2 (0.2) mg/dL Ur Leukocyte Esterase Negative (Negative) U Hyaline Cast (Auto) NONE SEEN (0-2) /LPF Urine Microscopic RBC 0-2 (0-5) /HPF Urine Microscopic WBC 0-2 (0-5) /HPF Ur Epithelial Cells None Seen (None Seen) /HPF Urine Bacteria None Seen (None Seen) /HPF Urine Culture Reflexed NO (NO) 05/29/24 Range/Units 04:40 WBC 10.4 H (4.23-9.07) x10^3/uL RBC 4.40 L (4.63-6.08) x10^6/uL Hgb 13.6 L (13.7-17.5) g/dL Hct 40.6 (40.1-51.0) % MCV 92.3 H (79.0-92.2) fL MCH 30.9 (25.7-32.2) pg MCHC 33.5 (32.3-36.5) g/dL RDW 12.6 (11.6-14.4) % Plt Count 157 L (163-337) x10^3/uL MPV 10.5 (9.4-12.4) fL Gran % (34.0-67.9) % Immature Gran % (Auto) (0.001-0.429) % Nucleat RBC Rel Count (0.00-0.2) % Eos # (Auto) (0.04-0.54) x10^3/uL Immature Gran # (Auto) (0.001-0.031) x10^3u/L Absolute Lymphs (auto) (1.32-3.57) x10^3/uL Absolute Monos (auto) (0.30-0.82) x10^3/uL Absolute Nucleated RBC (0.00-0.012) x10^3u/L Lymphocytes % (21.8-53.1) % Monocytes % (5.3-12.2) % Eosinophils % (0.8-7.0) % Basophils % (0.2-1.2) % Absolute Granulocytes (1.78-5.38) x10^3/uL Basophils # (0.01-0.08) x10^3/uL Sodium (135-145) mmol/L Potassium (3.5-5.1) mmol/L Chloride (98-107) mmol/L Carbon Dioxide (22-30) mmol/L Anion Gap (5-15) MEQ/L BUN (9-20) mg/dL Creatinine (0.66-1.25) mg/dL Estimated GFR ML/MIN Glucose (74-106) mg/dL Calcium (8.4-10.2) mg/dL Total Bilirubin (0.2-1.3) mg/dL AST (17-59) U/L ALT (0-50) U/L Alkaline Phosphatase (38-126) U/L Troponin I (0.000-0.033) ng/mL Serum Total Protein (6.3-8.2) g/dL Albumin (3.5-5.0) g/dL Amylase (30-110) U/L Lipase (23-300) U/L Urine Color (Yellow) Urine Appearance (Clear) Urine pH (4.6-8.0) Ur Specific [place] (1.005-1.030) Urine Protein (Negative) Urine Glucose (UA) (Negative) mg/dL Urine Ketones (Negative) Urine Blood (Negative) Urine Nitrite (Negative) Urine Bilirubin (Negative) Urine Urobilinogen (0.2) mg/dL Ur Leukocyte Esterase (Negative) U Hyaline Cast (Auto) (0-2) /LPF Urine Microscopic RBC (0-5) /HPF Urine Microscopic WBC (0-5) /HPF Ur Epithelial Cells (None Seen) /HPF Urine Bacteria (None Seen) /HPF Urine Culture Reflexed (NO) - Radiology Impressions Radiology Exams & Impressions: Radiology Procedures Category Date Time Status ABDOMEN AND PELVIS W CONTRAST [CT] Stat Exams 05/28/24 22:52 Completed CHEST WITH CONTRAST [CT] Stat Exams 05/28/24 22:[address] Abd/pelvis - mild wall thickening and stranding along parts of sigmoid colon, suggesting possible colitis CT Chest - no acute changes, bibasilar atelectasis Assessment/Plan (1) Vertigo Current Visit: Yes Status: Acute Assessment & Plan: 74 y/o M with h/o prostate cancer s/p brachytherapy, here with vertigo. ## Vertigo - sudden onset, severe, but no associated ear symptoms. No positional component per history, although still possible BPPV. Meniere's less likely without ear fullness. Most likely is vestibular neuritis, which should be self- limited in days. - PT evaluation for Yamilka-Hallpike maneuver - evaluate for nystagmus that would suggest BPPV - PRN Meclizine for vertigo - if persistent, consider neuro consult and/or MRI brain to look for vestibular TIA ## prior diverticulitis - ED doc was concerned for possible colitis and gave patient levaquin and Flagyl. However, patient has no symptoms of colitis (no pain, no diarrhea), and describes recent episode of diverticulitis. Most likely the mild wall thickening and fat stranding on CT Abd reflects the healing inflammation from prior infection. - d/c antibiotics - advance to regular diet - d/c IV fluids once taking PO ## prostatic uropathy - continue home Flomax Code status: DNR Prophylaxis: heparin SQ Diet: Regular Code(s): R42 - DIZZINESS AND GIDDINESS Telemedicine Encounter - Telemedicine Encounter Telemedicine Encounter: "The entirety of this encounter was performed via Telemedicine" This visit was performed using real-time audio and video connection between my location and thepatients locationwith the assistance of a surrogateat the patients location. Written or verbal consent was obtained from the patient/guardian to perform this visit [facility] [place] technology. Any patient questions regarding the telemedicine interaction were answered.
[2024-05-29] MEDS: Flomax 0.4 MG PO SCH (09:14)
[2024-05-29] MEDS: HEPARIN 5000 UNITS/0.5 ML (HIGH RISK MED) SQ SCH (09:15)
[2024-05-29] MEDS ORDERED: Ativan 2 MG/1 ML VIAL IV PRN (11:37)
[2024-05-29] MEDS ORDERED: PHENERGAN 25 MG PO PRN (11:37)
[2024-05-29] MEDS: FOLATE 1 MG PO SCH (12:06)
[2024-05-29] MEDS: VITAMIN B-1 100 MG PO SCH (12:06)
[2024-05-29] MEDS: THERAGRAN MULTIVITAMIN PO SCH (12:06)
[2024-05-29 12:48] LABS: INR 1.05 (0.8-3.0); PROTIME 11.4 SECONDS (9.4-12.5)
[2024-05-29 12:56] LABS: ETHYL ALCOHOL < 10 mg/dL (0-10); MAGNESIUM 2.1 mg/dL (1.6-2.3); PHOSPHOROUS 3.1 mg/dL (2.5-4.5)
--- NOTE | 2024-05-29 13:43 | XRAY ---
Indication: Vertigo. Negative CT head without contrast exam. Sagittal, coronal, and axial MRI brain performed without contrast using T1, T2, FLAIR, diffusion, and ADC sequences. Comparison: None Several images/sequences slightly degraded by motion artifact. Age-appropriate global atrophy with minimal periventricular degenerative micro-ischemia signal bilaterally. No acute intracranial hemorrhage, abnormal extra-axial fluid collection, mass effect. Diffusion images negative for restricted signal. Fourth ventricle is midline without hydrocephalus. 7/8 cranial nerve complex bilaterally symmetric. Normal flow-void signal within the major intracerebral circulation. Normal appearing craniocervical junction and sella turcica. Left occipital scalp demonstrates 1.4 x 2.0 x 2.0 cm subcutaneous sebaceous cyst. Paranasal sinuses are clear. Impression: Mild motion artifact. Atrophy and degenerative micro-ischemia within normal limits. Left occipital scalp subcutaneous sebaceous cyst. Remaining MRI brain without contrast exam is negative.
[2024-05-29 14:42] LABS: Amphetamine,Urine NEGATIVE (NEGATIVE); Barbiturate,Urine NEGATIVE (NEGATIVE); Cocaine,Urine NEGATIVE (NEGATIVE); Methadone,Urine NEGATIVE (NEGATIVE); Opiate,Urine NEGATIVE (NEGATIVE); PCP,Urine NEGATIVE (NEGATIVE); THC,Urine NEGATIVE (NEGATIVE)
[2024-05-29] MEDS: TYLENOL 325 MG PO PRN (21:18)
[2024-05-29] MEDS: ZOCOR 20MG PO SCH (21:19)
[2024-05-29] MEDS ORDERED: Flomax 0.4 MG PO SCH (22:00)
[2024-05-29] MEDS ORDERED: NON-FORMULARY ITEM (Atorvastatin Calcium [Atorvastatin Calcium] 80 MG Tablet) PO SCH (22:00)
[2024-05-30 05:10] LABS: Absolute Neutrophil Ct (ANC) 4.21 x10^3/uL (1.78-5.38); BASOPHIL % 0.7 % (0.2-1.2); Basophil (Absolute #) 0.04 x10^3/uL (0.01-0.08); Eosinophil (Absolute #) 0.18 x10^3/uL (0.04-0.54); Hematocrit 40.7 % (40.1-51.0); Hemoglobin 13.7 g/dL (13.7-17.5); IMMATURE GRAN # 0.01 x10^3u/L (0.001-0.031); IMMATURE GRAN % 0.2 % (0.001-0.429); Lymphocyte (Absolute #) 1.06 x10^3/uL (1.32-3.57); Lymphocytes % 17.7 % (21.8-53.1); Mean Cell Volume 92.5 fL (79.0-92.2); Mean Corpuscular Hemoglobin 31.1 pg (25.7-32.2); Mean Corpuscular Hgb Concent. 33.7 g/dL (32.3-36.5); Mean Platelet Volume 10.5 fL (9.4-12.4); Monocyte (Absolute #) 0.48 x10^3/uL (0.30-0.82); Neutrophil % 70.4 % (34.0-67.9); Platelet Count 152 x10^3/uL (163-337); Red Cell Distribution Width 12.8 % (11.6-14.4)
--- NOTE | 2024-05-30 05:13 | PCM.NOTE ---
Date and Time: 05/30/24 050 Subjective Assessment: HPI: 74 y/o M with h/o prostatce CA and dyslipidemia, who presents with severe nausea and vomiting. Patient complains of sudden episode of vertigo (with "the room spinning"), with severe nausea and vomiting, this morning. Initially came to the ED this morning, and was discharged home with prescription for meclizine. He had recurrent episode this afternoon, associated with severe diaphoresis, so returned to the ED today. He also notes a similar episode, but less severe, about one week ago. Episodes can occur at any time without prompting; he has not noted any particular movements or sides that worsen the veritgo. He denies ear fullness, pain, or hearing changes. He denies abdominal pain, diarrhea, fevers, chest pain or dyspnea. He notes that a little over a week ago he was treated for an episodes of diverticulitis (with diarrhea and abdominal pain) that has completely resolved. Objective Data Vital Signs: Vital Signs - 24 hr Temp Pulse Resp BP Pulse Ox 05/30/24 04:00 98.3 F 63 19 123/72 94 L 05/30/24 00:00 98.4 F 72 17 153/68 93 L 05/29/24 19:50 98.1 F 86 18 177/86 94 L 05/29/24 16:00 97.5 F 79 17 177/86 94 L 05/29/24 12:00 98.8 F 78 16 146/80 94 L 05/29/24 08:00 98.3 F 83 15 144/73 91 L Pain Assessment - Last Documented Pain Intensity 0 Pain Scale Used [facility] Intake and Output: Intake & Output 05/27/24 05/28/24 05/29/24 05/30/24 11:59 11:59 11:59 11:59 Intake Total 120 195 Balance 120 1956 Weight 98.8 kg Lab Results: Lab Results-Last 24 Hours 05/29/24 05/29/24 05/29/24 Range/Units 09:42 12:25 12:25 PT 11.4 (9.4-12.5) SECONDS INR 1.05 (0.8-3.0) POC Glucometer 112 H (74 to 106) mg/dL Phosphorus 3.1 (2.5-4.5) mg/dL Magnesium 2.1 (1.6-2.3) mg/dL Urine Opiates Level (NEGATIVE) Ur Methadone (NEGATIVE) Urine Barbiturates (NEGATIVE) Ur Phencyclidine (PCP) (NEGATIVE) Urine Amphetamine (NEGATIVE) U Benzodiazepine Level Urine Cocaine (NEGATIVE) Urine Marijuana (THC) (NEGATIVE) Ethyl Alcohol < 10 (0-10) mg/dL 05/29/24 Range/Units 14:23 PT (9.4-12.5) SECONDS INR (0.8-3.0) POC Glucometer (74 to 106) mg/dL Phosphorus (2.5-4.5) mg/dL Magnesium (1.6-2.3) mg/dL Urine Opiates Level NEGATIVE (NEGATIVE) Ur Methadone NEGATIVE (NEGATIVE) Urine Barbiturates NEGATIVE (NEGATIVE) Ur Phencyclidine (PCP) NEGATIVE (NEGATIVE) Urine Amphetamine NEGATIVE (NEGATIVE) U Benzodiazepine Level Pending Urine Cocaine NEGATIVE (NEGATIVE) Urine Marijuana (THC) NEGATIVE (NEGATIVE) Ethyl Alcohol (0-10) mg/dL Radiology Exams: Radiology Procedures Category Date Time Status ABDOMEN AND PELVIS W CONTRAST [CT] Stat Exams 05/28/24 22:52 Completed CHEST WITH CONTRAST [CT] Stat Exams 05/28/24 22:56 Completed MRI BRAIN W/O CONTRAST [MRI] Routine Exams 05/29/24 10:49 Completed Multi-Disciplinary Progress Notes: Multi-Disciplinary Progress Notes 05/29/24 13:09 Occupational Therapy Note by Gurwinder([id number])Elizabeth Cancel Occupational Therapy Evaluation at this time. Will defer to Physical Therapy at this time. Initialized on 05/29/24 13:09 - END OF NOTE Assessment/Plan (1) Vertigo Current Visit: Yes Status: Acute Assessment & Plan: -MRI Brain negative -Orthostatic vitals negative -- PT evaluation for Yamilka-Hallpike maneuver - evaluate for nystagmus that would suggest BPPV -ALL PROVOCATIVE TESTING WAS NEGATIVE. - PRN Meclizine for vertigo -Symptoms have resolved -ENT referral with vestibular focus/VNG testing - appt made - Code(s): R42 - DIZZINESS AND GIDDINESS (2) History of diverticulitis Current Visit: Yes Status: Acute Assessment & Plan: - ED doc was concerned for possible colitis and gave patient levaquin and Flagyl. However, patient has no symptoms of colitis (no pain, no diarrhea), and describes recent episode of diverticulitis. Most likely the mild wall thickening and fat stranding on CT Abd reflects the healing inflammation from prior infection. - d/c antibiotics - advance to regular diet Code(s): Z87.19 - PERSONAL HISTORY OF OTHER DISEASES OF THE DIGESTIVE SYSTEM (3) History of prostate cancer Current Visit: Yes Status: Acute Assessment & Plan: -noted, continue flomax Code(s): Z85.46 - PERSONAL HISTORY OF MALIGNANT NEOPLASM OF PROSTATE (4) HLD (hyperlipidemia) Current Visit: Yes Status: Acute Assessment & Plan: -continue statin Code(s): E78.5 - HYPERLIPIDEMIA, UNSPECIFIED
[2024-05-30 05:38] LABS: ALBUMIN 3.9 g/dL (3.5-5.0); ANION GAP 10.6 MEQ/L (5-15); BILIRUBIN,TOTAL 0.9 mg/dL (0.2-1.3); Calcium 9.2 mg/dL (8.4-10.2); Creatinine 1 1.04 mg/dL (0.66-1.25); EST GLOMERULAR FILTRATION RATE 75.4 ML/MIN; Potassium 3.7 mmol/L (3.5-5.1)
[2024-05-30 08:00] VITALS: RESP 16; O2SAT 92
--- NOTE | 2024-05-30 11:27 | PCM.DS ---
Discharge Summary Date of Admission: 05/29/24 02:58 Date of Discharge: 05/30/24 Admitting Physician: BRANDON HOBBS MD Primary Care Provider: KENN SINGLETARY Allergies Allergies No Known Drug Allergies Allergy (Verified 05/29/24 03:22) Hospital Summary - Hospital Course Hospital Course: HPI: 74 y/o M with h/o prostatce CA and dyslipidemia, who presents with severe nausea and vomiting. Patient complains of sudden episode of vertigo (with "the room spinning"), with severe nausea and vomiting, this morning. Initially came to the ED this morning, and was discharged home with prescription for meclizine. He had recurrent episode this afternoon, associated with severe diaphoresis, so returned to the ED today. He also notes a similar episode, but less severe, about one week ago. Episodes can occur at any time without prompting; he has not noted any particular movements or sides that worsen the veritgo. He denies ear fullness, pain, or hearing changes. He denies abdominal pain, diarrhea, fevers, chest pain or dyspnea. He notes that a little over a week ago he was treated for an episodes of diverticulitis (with diarrhea and abdominal pain) that has com pletely resolved. MRI negative for acute findings. No further episodes of dizziness since admission. PT evaluation with [place]-Hallpike maneuver - evaluate for nystagmus that would suggest BPPV -ALL PROVOCATIVE TESTING WAS NEGATIVE. Patient has been set up with ENT OP referral with vestibular focus/VNG testing. Patient agreeable to plan and ready for discharge. Discharge Note New Diagnosis:Vertigo New Medications:Meclizine - already called to pharmacy Follow Up: ENT/PCP Latest Assessment & Plan (1) Vertigo Current Visit: Yes Status: Acute Assessment & Plan: -MRI Brain negative -Orthostatic vitals negative -- PT evaluation for [place]-Hallpike maneuver - evaluate for nystagmus that would suggest BPPV -ALL PROVOCATIVE TESTING WAS NEGATIVE. - PRN Meclizine for vertigo -Symptoms have resolved -ENT referral with vestibular focus/VNG testing - appt made - Code(s): R42 - DIZZINESS AND GIDDINESS (2) History of diverticulitis Current Visit: Yes Status: Acute Assessment & Plan: - ED doc was concerned for possible colitis and gave patient levaquin and Flagyl. However, patient has no symptoms of colitis (no pain, no diarrhea), and describes recent episode of diverticulitis. Most likely the mild wall thickening and fat stranding on CT Abd reflects the healing inflammation from prior infection. - d/c antibiotics - advance to regular diet Code(s): Z87.19 - PERSONAL HISTORY OF OTHER DISEASES OF THE DIGESTIVE SYSTEM (3) History of prostate cancer Current Visit: Yes Status: Acute Assessment & Plan: -noted, continue flomax Code(s): Z85.46 - PERSONAL HISTORY OF MALIGNANT NEOPLASM OF PROSTATE (4) HLD (hyperlipidemia) Current Visit: Yes Status: Acute Assessment & Plan: -continue statin I spent 35 minutes [id number] with the patient on the day of discharge performing discharge exam, discussing hospital stay and discharge instructions with patient and caregivers, preparation of discharge records, prescriptions & referral forms and addressing any questions/concerns the patient had as documented above. - Vitals & Intake/Output Vital Signs: Vital Signs Temperature 97.5 F 05/30/24 07:59 Pulse Rate 78 05/30/24 07:59 Respiratory Rate 16 05/30/24 07:59 Blood Pressure 141/87 05/30/24 07:59 O2 Sat by Pulse Oximetry 92 L 05/30/24 07:59 Intake & Output: Intake & Output 05/27/24 05/28/24 05/29/24 05/30/24 11:59 11:59 11:59 11:59 Intake Total 120 2437 Balance 120 2437 Weight 98.8 kg - Lab Result Diagrams: 05/30/24 04:56 05/30/24 04:56 Lab Results-Last 24 Hrs: Lab Results-Last 24 Hours 05/29/24 05/29/24 05/29/24 Range/Units 12:25 12:25 14:23 WBC (4.23-9.07) x10^3/uL RBC (4.63-6.08) x10^6/uL Hgb (13.7-17.5) g/dL Hct (40.1-51.0) % MCV (79.0-92.2) fL MCH (25.7-32.2) pg MCHC (32.3-36.5) g/dL RDW (11.6-14.4) % Plt Count (163-337) x10^3/uL MPV (9.4-12.4) fL Gran % (34.0-67.9) % Immature Gran % (Auto) (0.001-0.429) % Nucleat RBC Rel Count (0.00-0.2) % Eos # (Auto) (0.04-0.54) x10^3/uL Immature Gran # (Auto) (0.001-0.031) x10^3u/L Absolute Lymphs (auto) (1.32-3.57) x10^3/uL Absolute Monos (auto) (0.30-0.82) x10^3/uL Absolute Nucleated RBC (0.00-0.012) x10^3u/L Lymphocytes % (21.8-53.1) % Monocytes % (5.3-12.2) % Eosinophils % (0.8-7.0) % Basophils % (0.2-1.2) % Absolute Granulocytes (1.78-5.38) x10^3/uL Basophils # (0.01-0.08) x10^3/uL PT 11.4 (9.4-12.5) SECONDS INR 1.05 (0.8-3.0) Sodium (135-145) mmol/L Potassium (3.5-5.1) mmol/L Chloride (98-107) mmol/L Carbon Dioxide (22-30) mmol/L Anion Gap (5-15) MEQ/L BUN (9-20) mg/dL Creatinine (0.66-1.25) mg/dL Estimated GFR ML/MIN Glucose (74-106) mg/dL Calcium (8.4-10.2) mg/dL Phosphorus 3.1 (2.5-4.5) mg/dL Magnesium 2.1 (1.6-2.3) mg/dL Total Bilirubin (0.2-1.3) mg/dL AST (17-59) U/L ALT (0-50) U/L Alkaline Phosphatase (38-126) U/L Serum Total Protein (6.3-8.2) g/dL Albumin (3.5-5.0) g/dL Urine Opiates Level NEGATIVE (NEGATIVE) Ur Methadone NEGATIVE (NEGATIVE) Urine Barbiturates NEGATIVE (NEGATIVE) Ur Phencyclidine (PCP) NEGATIVE (NEGATIVE) Urine Amphetamine NEGATIVE (NEGATIVE) U Benzodiazepine Level Pending Urine Cocaine NEGATIVE (NEGATIVE) Urine Marijuana (THC) NEGATIVE (NEGATIVE) Ethyl Alcohol < 10 (0-10) mg/dL 05/30/24 05/30/24 Range/Units 04:56 04:56 WBC 6.0 (4.23-9.07) x10^3/uL RBC 4.40 L (4.63-6.08) x10^6/uL Hgb 13.7 (13.7-17.5) g/dL Hct 40.7 (40.1-51.0) % MCV 92.5 H (79.0-92.2) fL MCH 31.1 (25.7-32.2) pg MCHC 33.7 (32.3-36.5) g/dL RDW 12.8 (11.6-14.4) % Plt Count 152 L (163-337) x10^3/uL MPV 10.5 (9.4-12.4) fL Gran % 70.4 H (34.0-67.9) % Immature Gran % (Auto) 0.2 (0.001-0.429) % Nucleat RBC Rel Count 0.0 (0.00-0.2) % Eos # (Auto) 0.18 (0.04-0.54) x10^3/uL Immature Gran # (Auto) 0.01 (0.001-0.031) x10^3u/L Absolute Lymphs (auto) 1.06 L (1.32-3.57) x10^3/uL Absolute Monos (auto) 0.48 (0.30-0.82) x10^3/uL Absolute Nucleated RBC 0.00 (0.00-0.012) x10^3u/L Lymphocytes % 17.7 L (21.8-53.1) % Monocytes % 8.0 (5.3-12.2) % Eosinophils % 3.0 (0.8-7.0) % Basophils % 0.7 (0.2-1.2) % Absolute Granulocytes 4.21 (1.78-5.38) x10^3/uL Basophils # 0.04 (0.01-0.08) x10^3/uL PT (9.4-12.5) SECONDS INR (0.8-3.0) Sodium 135 (135-145) mmol/L Potassium 3.7 (3.5-5.1) mmol/L Chloride 101 (98-107) mmol/L Carbon Dioxide 26 (22-30) mmol/L Anion Gap 10.6 (5-15) MEQ/L BUN 13 (9-20) mg/dL Creatinine 1.04 (0.66-1.25) mg/dL Estimated GFR 75.4 ML/MIN Glucose 100 (74-106) mg/dL Calcium 9.2 (8.4-10.2) mg/dL Phosphorus (2.5-4.5) mg/dL Magnesium (1.6-2.3) mg/dL Total Bilirubin 0.90 (0.2-1.3) mg/dL AST 35 (17-59) U/L ALT 25 (0-50) U/L Alkaline Phosphatase 87 (38-126) U/L Serum Total Protein 7.0 (6.3-8.2) g/dL Albumin 3.9 (3.5-5.0) g/dL Urine Opiates Level (NEGATIVE) Ur Methadone (NEGATIVE) Urine Barbiturates (NEGATIVE) Ur Phencyclidine (PCP) (NEGATIVE) Urine Amphetamine (NEGATIVE) U Benzodiazepine Level Urine Cocaine (NEGATIVE) Urine Marijuana (THC) (NEGATIVE) Ethyl Alcohol (0-10) mg/dL - Radiology Exams Ordered Rad Exams-Entire Visit: Radiology Procedures Category Date Time Status ABDOMEN AND PELVIS W CONTRAST [CT] Stat Exams 05/28/24 22:52 Completed CHEST WITH CONTRAST [CT] Stat Exams 05/28/24 22:56 Completed MRI BRAIN W/O CONTRAST [MRI] Routine Exams 05/29/24 10:49 Completed - Procedures and Test Procedures and Tests throughout Hospitalization: Therapy Orders & Screens 05/29/24 05:39 PT Eval & Treat ( Order) ONCE Reason for Eval:: evaluate for BPPV ([place]-Hallpike maneuver) Diagnosis: vertigo Discharge Exam General Appearance: no apparent distress Neurologic Exam: alert, oriented x 3, cooperative Eye Exam: PERRL Ears, Nose, Throat Exam: normal ENT inspection Neck Exam: normal inspection Respiratory Exam: normal breath sounds, lungs clear Cardiovascular Exam: regular rate/rhythm, normal heart sounds Gastrointestinal/Abdomen Exam: soft, normal bowel sounds Male Genitalia Exam: deferred Rectal Exam: deferred Back Exam: normal inspection Extremity Exam: normal inspection Final Diagnosis/Problem List - Final Discharge Diagnosis/Problem (1) Vertigo Current Visit: Yes Status: Acute Code(s): R42 - DIZZINESS AND GIDDINESS (2) History of diverticulitis Current Visit: Yes Status: Acute Code(s): Z87.19 - PERSONAL HISTORY OF OTHER DISEASES OF THE DIGESTIVE SYSTEM (3) History of prostate cancer Current Visit: Yes Status: Acute Code(s): Z85.46 - PERSONAL HISTORY OF MALIGNANT NEOPLASM OF PROSTATE (4) HLD (hyperlipidemia) Current Visit: Yes Status: Acute Code(s): E78.5 - HYPERLIPIDEMIA, UNSPECIFIED - Discharge Disposition: Home, Self-Care Condition: Stable Prescriptions: Continue Atorvastatin Calcium 80 mg PO HS Meclizine HCl 25 mg [Antivert 25 mg] 25 mg PO Q8H PRN #10 tablet PRN Reason: Dizziness Tamsulosin HCl 0.4 mg [Flomax 0.4 MG] 0.4 mg PO HS Instructions: Vertigo (a type of dizziness) Additional Instructions: BALANCE MD IN [place] WILL CALL YOU TO GIVE YOU AN APT TIME. YOU CAN REACH THEM AT IF YOU DONT HEAR ANYTHING SOON. Follow up with: SAMINA LYNNE MD [NON-STAFF PHY W/O PRIVILEGES] - Office will call patient
[2024-05-30 12:11] VITALS: BP 139/66; PULSE 69; TEMP 97.8
== END 2024-05-30 11:58 | disposition home or self-care (01) ==
LOC: ED 22:32 → MED SURG 05-29 02:58
PROVIDERS: ADMIT Internal Medicine; ATTEND Internal Medicine
DX: R42 Dizziness and giddiness (principal); Z87.19 Personal history of other diseases of the digestive system; Z85.46 Personal history of malignant neoplasm of prostate; E78.5 Hyperlipidemia, unspecified; Z79.899 Other long term (current) drug therapy
CPT/HCPCS: 36415; 70551; 71260; 74177; 80048; 80053; 80307; 81001; 82077; 82150; 82947; 83690; 83735; 84100; 84484; 85025; 85027; 85610; 96374; 97161; 99283; Q3014; G0378; J1644; J1956; A9270-GY